=== PATIENT | male | born 1950 | race Caucasian/White ===

== ENCOUNTER → 2017-10-25 | Outpatient (CLI) | payer OTHER, MEDICARE | DX: I25.10 Atherosclerotic heart disease of native coronary artery without angina pectoris (principal) ==

== ENCOUNTER → 2018-06-15 | Outpatient (CLI) | payer OTHER, MEDICARE | LOC: BHFA 10:45 | PROVIDERS: ATTEND Nurse Practitioner Adult Health | DX: I42.9 Cardiomyopathy, unspecified (principal); I25.10 Atherosclerotic heart disease of native coronary artery without angina pectoris; E78.5 Hyperlipidemia, unspecified; M10.9 Gout, unspecified ==

== ENCOUNTER 2018-08-13 13:27 | Emergency (ER) | payer OTHER, MEDICARE | END 2018-08-13 14:45 | disposition home or self-care (01) | LOC: CED 13:27 ==